=== PATIENT | male | born 1940 | race Caucasian/White ===

== ENCOUNTER → 2017-11-08 15:21 | Outpatient (CLI) | payer MEDICARE, SELFPAY ==
[2017-11-08 16:08] LABS: PSA,Total- Diagnostic 8.15 ng/mL (0.0-4.0)
== END ==
PROVIDERS: Family Provider Internal Medicine; PCP Internal Medicine; Visit Provider Urology
DX: R97.20 Elevated prostate specific antigen [PSA] (principal)
CPT/HCPCS: 36415; 84153

== ENCOUNTER → 2017-11-30 16:02 | Outpatient (CLI) | payer MEDICARE, SELFPAY ==
--- NOTE | 2017-11-30 | IMM_PTH ---
PATIENT: OFE BLAIR LOC: [facility] U#:[id number] AGE/SX: 84/M ROOM: RE11/30/[address]: Dr. Andrew Haney MD : 1940 BED: DIS: SPEC #: [id number] RECD: 12/02/17 12:37 STATUS: VLADIMIR REQ #: [id number] ADINA: 11/30/17 00:[address]: Andrew Haney DEPT: IMMUNOHISTOCHEMISTRY RECD BY: Holly Allred ENTERED: 12/02/17 12:39 SP TYPE: IMMUNO OTHR DR: Dr. Michelle Sumner MD Tissues: C - PROSTATE RIGHT D - PROSTATE LEFT F - PROSTATE LEFT Procedures: 34BE12 (add) P40 (add) 34BE12 (initial) PHYSICIAN & INSTITUTION [place] [address] SPECIMEN INFORMATION: Tissue Source: C ? Right prostate base, D ? Left prostate apex, F ? Left prostate base Clinical Info: Elevated PSA Specimen Number: [id number] C, D & F CPT code: 80015, 34433 x5 METHODOLOGY: Deparaffinized sections of prefer/formalin-fixed tissue or PAP/DQ stained slides are incubated with monoclonal/polyclonal antibodies/oligonucleotide probes. Localization is made via biotin free immunoperoxidase method. Appropriate controls are performed and reacted as expected. Results on target cell population are indicated in the following table: RESULTS: ANTIBODY / CLONE RESULT Block C P40 (BC28) positive 34BE12 (34BE12) positive Block D P40 (BC28) negative 34BE12 (34BE12) negative Block F P40 (BC28) positive 34BE12 (34BE12) positive These tests were developed and their performance characteristics determined by [facility]. They may not have been cleared or approved by the U.S. Food and Drug Administration. The FDA has determined that such clearance or approval is not necessary. INTERPRETATION: C. Right prostate, base, core biopsy: Focal high-grade prostatic intraepithelial neoplasia (HGPIN). D. Left prostate, apex, core biopsy: Adenocarcinoma. F. Left prostate, base, core biopsy: Focal high-grade prostatic intraepithelial neoplasia (HGPIN). SJ:escobar 12/03/17
--- NOTE | 2017-11-30 08:00 | PROSBIL_PTH ---
PATIENT: OFE BLAIR LOC: [facility] U#:[id number] AGE/SX: 84/M ROOM: RE11/30/[address]: Dr. Andrew Haney MD : 1940 BED: DIS: SPEC #: [id number] RECD: 11/30/17 15:00 STATUS: VLADIMIR MEG #: [id number] ADINA: 11/30/17 08:[address]: Andrew Haney DEPT: SURGICAL PATHOLOGY RECD BY: Viridiana Martinez ENTERED: 12/01/17 09:55 SP TYPE: PROST BX TANYA DR: Dr. Michelle Sumner MD Tissues: A - PROSTATE RIGHT B - PROSTATE RIGHT C - PROSTATE RIGHT D - PROSTATE LEFT E - PROSTATE LEFT F - PROSTATE LEFT Procedures: PROSTATE BX HEADER OPERATION: Prostate biopsy PRE-OP DIAGNOSIS: Elevated PSA TISSUE SUBMITTED: A - Right apex, B - Right mid, C - Right base, D - Left apex, E - Left mid, F - Left base MICROSCOPIC DIAGNOSIS A. Right prostate, apex, core biopsy: Prostatic tissue, negative for malignancy. Focal mild chronic inflammation. B. Right prostate, mid, core biopsy: Prostatic tissue, negative for malignancy. Focal mild chronic inflammation. C. Right prostate, base, core biopsy: Focal high-grade prostatic intraepithelial neoplasia (HGPIN). See comment. D. Left prostate, apex, core biopsy: Prostatic adenocarcinoma: [place] grade: 3+3=6 Number of cores involved: 1 out of 2 Proportion of tissue involved: ~10% Perineural invasion: Not identified. Greatest tumor length: 0.2 cm See comment. E. Left prostate, mid, core biopsy: Prostatic tissue, negative for malignancy. Chronic inflammation. F. Left prostate, base, core biopsy: Focal high-grade prostatic intraepithelial neoplasia (HGPIN). Chronic inflammation. See comment. SJ:escobar 12/02/17 COMMENT C, D & F - Immunohistochemistry ([id number]) supports the above diagnosis. Please make reference to previous specimen ([id number]) right prostate, apex, right prostate, base and left prostate, mid with diagnosis of ?focal high-grade prostatic intraepithelial neoplasia? and right prostate, mid, core biopsy with diagnosis of ?focal atypical small acinar proliferation.? This case has been reviewed in consultation with Dr. Dill who concurs with the above diagnosis. MICROSCOPIC DESCRIPTION Slides are reviewed. GROSS DESCRIPTION A - Received is one container designated prostate, right apex. The specimen consists of two elongated fragments of light navarro-white soft tissue each measuring 1.5 cm in length and 0.1 cm in diameter. The specimen is totally submitted in one cassette. B - Received is one container designated prostate, right mid. The specimen consists of two elongated fragments of light navarro-white soft tissue each measuring 1 cm in length and 0.1 cm in diameter. The specimen is totally submitted in one cassette. C - Received is one container designated prostate, right base. The specimen consists of two elongated fragments of light navarro-white soft tissue each measuring 1 cm in length and 0.1 cm in diameter. The specimen is totally submitted in one cassette. D - Received is one container designated prostate, left apex. The specimen consists of two elongated fragments of light navarro-white soft tissue each measuring 1 cm in length and 0.1 cm in diameter. The specimen is totally submitted in one cassette. E - Received is one container designated prostate, left mid. The specimen consists of two elongated fragments of light navarro-white soft tissue each measuring 1 cm in length and 0.1 cm in diameter. The specimen is totally submitted in one cassette. F - Received is one container designated prostate, left base. The specimen consists of two elongated fragments of light navarro-white soft tissue each measuring 1 cm in length and 0.1 cm in diameter. The specimen is totally submitted in one cassette. / AM:escobar 12/01/17 TC:0 [facility]: [id number]
== END ==
PROVIDERS: Family Provider Internal Medicine; PCP Internal Medicine; Visit Provider Urology
DX: R97.20 Elevated prostate specific antigen [PSA] (principal)
CPT/HCPCS: 88305; 88341; 88342; G0416

== ENCOUNTER → 2020-06-06 12:05 | Outpatient (CLI) | payer MEDICARE, SELFPAY ==
--- NOTE | 2020-06-06 | IMM_PTH ---
PATIENT: OFE BLAIR LOC: [facility] U#:[id number] AGE/SX: 84/M ROOM: RE06/06/[address]: Dr. Andrew Haney MD : 1940 BED: DIS: SPEC #: [id number] RECD: 06/07/20 14:06 STATUS: VLADIMIR REQ #: [id number] ADINA: 06/06/20 00:[address]: Andrew Haney DEPT: IMMUNOHISTOCHEMISTRY RECD BY: Holly Allred ENTERED: 06/07/20 14:07 SP TYPE: IMMUNO OTHR DR: Dr. Michelle Sumner MD Tissues: B - PROSTATE RIGHT C - PROSTATE RIGHT D - PROSTATE LEFT Procedures: 34BE12 (add) P40 (add) 34BE12 (initial) PHYSICIAN & INSTITUTION [place] [address] SPECIMEN INFORMATION: Tissue Source: B - Right prostate, mid, C - Right prostate, base, D - Left prostate, apex Clinical Info: R97.20 Specimen Number: [id number] B, C & D CPT code: 23034, 04236 x5 METHODOLOGY: Deparaffinized sections of prefer/formalin-fixed tissue or PAP/DQ stained slides are incubated with monoclonal/polyclonal antibodies/oligonucleotide probes. Localization is made via biotin free immunoperoxidase method. Appropriate controls are performed and reacted as expected. Results on target cell population are indicated in the following table: RESULTS: ANTIBODY / CLONE RESULT Block B P40 (BC28) positive 34BE12 (34BE12) positive Block C P40 (BC28) negative 34BE12 (34BE12) negative Block D P40 (BC28) negative 34BE12 (34BE12) negative These tests were developed and their performance characteristics determined by [facility]. They may not have been cleared or approved by the U.S. Food and Drug Administration. The FDA has determined that such clearance or approval is not necessary. The above immunohistochemical/dualISH markers are ordered and reviewed by the Pathologist. INTERPRETATION: B. Right prostate, mid, core biopsy: Negative for adenocarcinoma. C. Right prostate, base, core biopsy: Adenocarcinoma. D. Left prostate, apex, core biopsy: Adenocarcinoma. SJ:escobar 06/10/2020
--- NOTE | 2020-06-06 08:00 | PROSBIL_PTH ---
PATIENT: OFE BLAIR LOC: [facility] U#:[id number] AGE/SX: 84/M ROOM: RE06/06/[address]: Dr. Andrew Haney MD : 1940 BED: DIS: SPEC #: [id number] RECD: 06/06/20 11:54 STATUS: VLADIMIR MEG #: [id number] ADINA: 06/06/20 08:[address]: Andrew Haney DEPT: SURGICAL PATHOLOGY RECD BY: María Bethea ENTERED: 06/06/20 12:44 SP TYPE: PROST BX TANYA DR: Dr. Michelle Sumner MD Tissues: A - PROSTATE RIGHT B - PROSTATE RIGHT C - PROSTATE RIGHT D - PROSTATE LEFT E - PROSTATE LEFT F - PROSTATE LEFT Procedures: PROSTATE BX HEADER OPERATION: Prostate biopsy PRE-OP DIAGNOSIS: R97.20 TISSUE SUBMITTED: A - Right apex, B - Right mid, C - Right base, D - Left apex, E - Left mid, F - Left base MICROSCOPIC DIAGNOSIS A. Right prostate, apex, core biopsy: Prostatic tissue, negative for malignancy. Focal atrophy and basal cell hyperplasia. B. Right prostate, mid, core biopsy: Prostatic tissue, negative for malignancy. Focal mild chronic inflammation. See comment. C. Right prostate, base, core biopsy: Prostatic adenocarcinoma. [place] grade: 3+3=6 Number of cores involved: 1/2 Proportion of tissue involved: ~20% Perineural invasion: Not identified. Greatest tumor length: 0.3 cm Focal high-grade prostatic intraepithelial neoplasia (HGPIN). See comment. D. Left prostate, apex, core biopsy: Prostatic adenocarcinoma. [place] grade: 3+3=6 Number of cores involved: 1/2 Proportion of tissue involved: ~10% Perineural invasion: Not identified. Greatest tumor length: 0.2 cm Focal high-grade prostatic intraepithelial neoplasia (HGPIN). See comment. E. Left prostate, mid, core biopsy: Prostatic tissue, negative for malignancy. F. Left prostate, base, core biopsy: Prostatic tissue, negative for malignancy. SJ:escobar 06/07/2020 COMMENT B,C & D. Immunohistochemistry ([id number]) supports the above diagnosis. Please make reference to previous specimen ([id number]) left prostate, apex, core biopsy with diagnosis of prostatic adenocarcinoma and right and left prostate, base, core biopsy with diagnosis of focal high-grade prostatic intraepithelial neoplasia. Case has been reviewed in consultation with Dr. Dill who concurs with the above diagnosis. IDC:AM MICROSCOPIC DESCRIPTION Slides are reviewed. GROSS DESCRIPTION A - Received is one container designated prostate, right apex. The specimen consists of two elongated fragments of light navarro-white soft tissue each measuring 1 and 1.5 cm in length and 0.1 cm in diameter. The specimen is totally submitted in one cassette. B - Received is one container designated prostate, right mid. The specimen consists of two elongated fragments of light navarro-white soft tissue each measuring 2 cm in length and 0.1 cm in diameter. The specimen is totally submitted in one cassette. C - Received is one container designated prostate, right base. The specimen consists of two elongated fragments of light navarro-white soft tissue measuring 1 and 1.5 cm in length and 0.1 cm in diameter. The specimen is totally submitted in one cassette. D - Received is one container designated prostate, left apex. The specimen consists of two elongated fragments of light navarro-white soft tissue each measuring 0.9 cm in length and 0.1 cm in diameter. The specimen is totally submitted in one cassette. E - Received is one container designated prostate, left mid. The specimen consists of two elongated fragments of light navarro-white soft tissue each measuring 1 cm in length and 0.1 cm in diameter. The specimen is totally submitted in one cassette. F - Received is one container designated prostate, left base. The specimen consists of two elongated fragments of light navarro-white soft tissue each measuring 1.1 cm in length and 0.1 cm in diameter. The specimen is totally submitted in one cassette. / MICHAEL:escobar 06/06/20 TC:0 CPT: G0146
== END ==
PROVIDERS: PCP Internal Medicine; Referring Provider Urology; Visit Provider Urology
DX: R97.20 Elevated prostate specific antigen [PSA] (principal); C61 Malignant neoplasm of prostate; Z12.5 Encounter for screening for malignant neoplasm of prostate
CPT/HCPCS: 88305; 88341; 88342; G0416

== ENCOUNTER 2021-01-10 11:38 | Day surgery (SDC) | payer MEDICARE, SELFPAY ==
[2021-01-10 12:15] VITALS: BP 158/85; PULSE 79; RESP 18; TEMP 36.4; O2SAT 96; BMI 27.9
[2021-01-10] MEDS: Lactated Ringers 1,000 ML 100 ML IV (12:15)
[2021-01-10] MEDS: Cefazolin 2 GM in 0.9% Normal Saline 100 ML IV (13:37)
--- NOTE | 2021-01-10 13:44 | PCM.DC ---
Discharge Instructions Diet Discharge Diet: No restrictions Activity Discharge Activity: Return to Normal Activity and May Not Drive (while taking narcotic pain medications.) Dressing / Incision Call your doctor if you observe: Fever of 101 or Higher Follow Up Care Please Follow Up With: Andrew Haney MD When: Call [phone] for an appointment Test Results: Test results from this visit will be discussed in further detail at your follow-up appointment, if applicable. Discharge Plan Admission Primary Reason for Your Visit: placement markers Attending Provider: Andrew Haney Primary Care Provider: Michelle Sumner Discharge Orders/Prescriptions Prescriptions: New ciprofloxacin HCl [Cipro] 500 mg tablet 500 mg PO BID Qty: 14 RF: 0 Continued amlodipine 5 mg tablet 5 mg PO DAILY RF: 0 One-A-Day Men's 50 Plus 1 tab PO/SL DAILY RF: 0 Referrals / Follow Up: Andrew Haney MD [STAFF PHYSICIAN] - Michelle Sumner MD [Primary Care Provider] - Disposition Disposition (needs filled in before D/C Order can be placed): Home, Self Care
--- NOTE | 2021-01-10 13:51 | OP.PCM_ITS ---
Report of Operation Date of Procedure: 01/10/21 Pre-Operative Diagnosis: prostate cancer Post-Operative Diagnosis: same Surgery/Procedure Performed:: placement of gold markers and placement of spacer gel matrix Description of Surgical Findings:: The penis and testicles were prepped and draped in usual sterile fashion, ultrasound probe was placed into the rectum and biplanar ultrasound was performed on the prostate. Identified the base mid and apex of the prostate identified the transition zone prostate. Then using a needle the first montessori teacher was placed into the right base of the prostate, the second montessori teacher was placed in the left base of the prostate, and the third core marker was placed in the right apex of the prostate after all 3 markers were placed the placement of the markers were confirmed by ultrasonography. The genitals and perineum were prepped and draped in usual sterile fashion. I then introduced a biplanar ultrasound probe into the rectum and performed ultrasonography and identified the Denonvilliers' fascia the prostate mid base and apex and seminal vesicles. The spacer gel mix was then prepared on the back table per manufactures instruction. Under ultrasound guidance in the midline perineum a bevel needle down we advanced through the perineum below the prostate into the space of Denonvilliers' fascia. This space which could be identified by ultrasound with a bright white layer between the prostate and the rectum. I then injected a puff of normal saline to identify the space further. After I confirmed that the needle was in the correct space in the mid prostate and the space of Denonvilliers' fascia between the rectum and the prostate. Then over the course of 15 seconds the gel matrix was injected slowly there was nice separation between the prostate and the rectum at the gel matrix was injected. The position of the gel matrix was confirmed by ultrasound. Then the injection needle was removed intact. Patient's perineum was cleaned patient was taken out of stirrups and then taken back to the PACU in good condition. Surgeon: aman Type of Anesthesia: General Admit VTE Documentation VTE Present on Admission: No VTE Mechan Device Prophylaxis: SCD's VTE Pharm Prophylaxis ordered?: No
[2021-01-10 14:01] VITALS: BP 158/85; BP 84/60; PULSE 66; RESP 16; TEMP 36.6; O2SAT 94
[2021-01-10 14:05] VITALS: BP 158/85; BP 97/74; PULSE 66; RESP 16; O2SAT 92
[2021-01-10 14:11] VITALS: BP 101/67; BP 158/85; PULSE 72; RESP 16; O2SAT 94
[2021-01-10 14:18] VITALS: BP 114/80; BP 158/85; PULSE 73; RESP 16; TEMP 36.3; O2SAT 94
[2021-01-10 14:58] VITALS: BP 138/81; BP 158/85; PULSE 74; RESP 16; TEMP 36.3; O2SAT 97
== END 2021-01-10 15:01 | disposition home or self-care (01) ==
LOC: SDC 11:40 → AC 11:42
PROVIDERS: PCP Internal Medicine; Referring Provider Urology; Visit Provider Urology
PROC: (CPT 55874; principal; 2021-01-10 13:45)
DX: C61 Malignant neoplasm of prostate (principal); I10 Essential (primary) hypertension
CPT/HCPCS: 00902; 55876; J7120; J2405; J3490

== ENCOUNTER → 2021-01-23 11:33 | Outpatient (CLI) | payer MEDICARE, SELFPAY ==
[2021-01-23 12:28] LABS: Absolute Lymphocyte Count 1.64 X10^3/uL (0.83-4.51); Absolute Neutrophil Count 4.7 X10^3/uL (2.0-7.7); Basophil# 0.05 X10^3/uL; Basophil% 0.7 % (0-1); Eosinophil# 0.12 X10^3/uL; Eosinophils% 1.7 % (0-5); Hematocrit 48.6 % (40-54); Hemoglobin 15.8 g/dL (13.0-16.5); Lymphocyte # 1.64 X10^3/ul (0.83-4.51); Lymphocyte % 22.7 % (19-41); Mean Corp Hgb Conc 32.5 g/dL (32-36); Mean Corpuscular Hgb 29.6 pg (27.0-32.0); Mean Corpuscular Volume 91.2 fL (80-94); Mean Platelet Vol. 10.9 fl (6.2-12.0); Monocyte% 9.7 % (0-10); NRBC Flagged by Analyzer 0 % (0-5); Neutrophil # 4.68 X10^3/uL (2.7-7.7); Neutrophil % 64.6 % (47-70); Platelet Count 239 K/mm3 (150-450); RBC Distribution Width CV 12.8 % (11.6-14.6); RBC Distribution Width SD 43.1 fl (35.1-43.9); Red Blood Count 5.33 M/mm3 (4.6-6.2); White Blood Count 7.2 K/mm3 (4.4-11.0)
[2021-01-23 12:40] LABS: Creatinine, Serum 1.54 mg/dL (0.70-1.30); EST Glomerular Filtration Rate 47 mL/min (>60); Est Glom Filt Rate - Afr Amer 56 mL/min (>60)
== END ==
PROVIDERS: PCP Internal Medicine; Referring Provider Radiology Radiation Oncology; Visit Provider Radiology Radiation Oncology
DX: Z01.818 Encounter for other preprocedural examination (principal); C61 Malignant neoplasm of prostate
CPT/HCPCS: 36415; 82565; 84153; 85025

== ENCOUNTER → 2021-01-24 12:38 | Outpatient (CLI) | payer MEDICARE, SELFPAY ==
--- NOTE | 2021-01-24 12:46 | CT_ITS ---
STUDY: CT PELVIS WITH CONTRAST REASON FOR EXAM: Male, 80 years old. Prostate cancer RADIATION DOSAGE (If Supplied By Facility): CTDIvol = ( 16.32 ) mGy, DLP = ( 1359.12 ) mGycm TECHNIQUE: Transaxial imaging of the pelvis was performed with oral contrast. 100 ml of ISO 300 contrast was administered intravenously. Individualized dose optimization techniques were used for this CT. COMPARISON: None. FINDINGS: Normal urinary bladder. Normal visualized small intestine. Normal visualized colon. There is no pelvic fluid. There is no pelvic lymphadenopathy or mass lesion. There is enlargement of the prostate gland. There are prostatic seed implants. Normal visualized pelvic arteries. Linear hyperdense fluid is seen in the penile shaft suggesting urination in progress. Trace free fluid in the pelvis. The source is not identified. There is a left inguinal hernia containing fat. Normal osseous structures. CT/CT Pelvis W/CONT Therapy IMPRESSION: There are prostatic seed implants. Trace free fluid in the pelvis. The source is not identified. Electronically Signed: Brandin Harris MD at 16:45 EDT , Service support ,
== END ==
PROVIDERS: PCP Internal Medicine; Referring Provider Radiology Radiation Oncology; Visit Provider Radiology Radiation Oncology
DX: C61 Malignant neoplasm of prostate (principal)
CPT/HCPCS: 51600; 72193; Q9967

== ENCOUNTER → 2021-02-24 09:24 | Outpatient (CLI) | payer MEDICARE, SELFPAY ==
[2021-02-24 12:13] LABS: Absolute Lymphocyte Count 1.31 X10^3/uL (0.83-4.51); Absolute Neutrophil Count 4.7 X10^3/uL (2.0-7.7); Basophil# 0.04 X10^3/uL; Basophil% 0.6 % (0-1); Eosinophil# 0.18 X10^3/uL; Eosinophils% 2.6 % (0-5); Hematocrit 48.9 % (40-54); Hemoglobin 15.5 g/dL (13.0-16.5); Lymphocyte # 1.31 X10^3/ul (0.83-4.51); Mean Corp Hgb Conc 31.7 g/dL (32-36); Mean Corpuscular Hgb 29.3 pg (27.0-32.0); Mean Corpuscular Volume 92.4 fL (80-94); Mean Platelet Vol. 10.8 fl (6.2-12.0); Monocyte# 0.67 X10^3/uL; Monocyte% 9.7 % (0-10); NRBC Flagged by Analyzer 0 % (0-5); Neutrophil # 4.65 X10^3/uL (2.7-7.7); Neutrophil % 67.5 % (47-70); Platelet Count 221 K/mm3 (150-450); RBC Distribution Width CV 12.9 % (11.6-14.6); RBC Distribution Width SD 43.7 fl (35.1-43.9); Red Blood Count 5.29 M/mm3 (4.6-6.2); White Blood Count 6.9 K/mm3 (4.4-11.0)
== END ==
PROVIDERS: PCP Internal Medicine; Visit Provider Radiology Radiation Oncology
DX: C61 Malignant neoplasm of prostate (principal)
CPT/HCPCS: 36415; 85025

== ENCOUNTER 2021-03-17 22:28 | Emergency (ER) | payer MEDICARE, SELFPAY ==
[2021-03-17 22:29] VITALS: BP 171/99; PULSE 80; RESP 16; TEMP 36; O2SAT 96; BMI 29.0
--- NOTE | 2021-03-17 23:00 | EDS_ITS ---
HPI History of Present Illness Chief Complaint: Allergic Reaction Informant: patient and spouse/S.O. Onset/Context/Timing Onset: Today Context: Gradual Onset Timing: Continuous Current Severity: Mild Maximum Severity: Mild Narrative Narrative: 80-year-old male history of prostate cancer who underwent radiation therapy. And was placed on Flomax due to urinary retention and poor urinary flow. Said today he developed hives and itching on his upper extremities. Never had a reaction like this before. The only new medication he is on is Flomax. He is also on amlodipine and a vitamin. No new soaps, colognes or detergents. No new foods. He denies any lip or tongue swelling. No wheezing or trouble breathing. Prior similar symptoms: No Recent Illness/Hospitalization: No PFSH PFSH Medical History Cancer Hypertension Non-smoker Wears glasses Home Medications One-A-Day Men's 50 Plus 1 tab PO/SL DAILY 01/03/21 [History Last Taken Unknown] amlodipine 5 mg PO DAILY 01/03/21 [History Last Taken 01/10/21 06:00] ciprofloxacin HCl [Cipro] 500 mg PO BID #14 tab 01/10/21 [Rx Last Taken Unknown] prednisone 40 mg PO DAILY 3 Days #6 tab 03/17/21 [Rx Last Taken Unknown] Allergy/AdvReac Type Severity Reaction Status Date / Time tamsulosin [From Flomax] AdvReac Hives Verified 03/17/21 22:30 Surgical History History of colonoscopy History of tonsillectomy Social History Smoking Status: Never smoker ROS ROS ED ROS Narrative Denies recent illness. Review of Systems ROS Unobtainable: Denies due to encephalopathy Constitutional Constitutional ED: Denies chills or fever(s) Eyes Eyes: Denies change in vision ENT ENT ED: Denies ear pain Cardiovascular Cardiovascular: Denies chest pain or palpitations Respiratory/Chest Respiratory/Chest: Denies cough or dyspnea Gastrointestinal Gastrointestinal: Denies abdominal pain, diarrhea, nausea or vomiting Genitourinary Genitourinary ED: Reports urinary frequency; Denies dysuria or hematuria Musculoskeletal Musculoskeletal: Denies myalgias Integumentary Reports rash Neurologic Neurologic: Denies headache(s) Psychiatric Psychiatric: Denies depression Endocrine Endocrinology: Denies polyuria Allergic/Immunologic Allergic/Immunologic ED: Denies urticaria EXAM Physical Exam Narrative Exam Narrative: 72-year-old male no acute distress vital signs stable afebrile. HEENT exam unremarkable. No swelling of his lips or tongue. No trouble breathing or swallowing. Neck nontender. Lungs clear to auscultation bilaterally. Heart regular rhythm no murmur. Abdomen soft nontender. Extremities moves all 4. Calves nontender without edema. He has hives on both forearms. Back nontender. Back chest and abdomen have no hives. Skin otherwise is unremarkable. Neurologically is awake and alert with no focal motor deficits. Const Vital Signs: 03/17/21 22:29 Temperature 96.8 F L Temperature Source Temporal Pulse Rate 80 Respiratory Rate 16 Blood Pressure 171/99 H Blood Pressure Mean 123 Pulse Ox 96 Oxygen Delivery Method Room Air Positive well nourished and well developed; Negative for obese, cachectic, contractures or unkempt General Appearance ED: well developed and NAD; Negative for unkempt, cachectic, contractures, cyanotic or diaphoretic Nutritional Appearance: Negative for cachectic or obese HEENT Reports moist mucous membranes Negative for trauma or tenderness Eyes PERRL and EOMs intact bilaterally Neck no lymphadenopathy, supple and no JVD General: Negative for tenderness Chest Wall inspection of chest normal and palpation of chest normal Resp normal respiratory effort and clear to auscultation bilaterally Effort and Inspection: Negative for pain with movement Auscultation: Negative for rales, rhonchi or wheezes Cardio regular rate, regular rhythm, S1 normal heart sound, S2 normal heart sound and no murmurs GI normal to inspection, nondistended, normoactive bowel sounds, non-tender, non- distended and no masses Inspection: Negative for abdominal distention Auscultation: normoactive bowel sounds Palpation: soft; Negative for tender, guarding or rebound tenderness present Back/Spine no CVA tenderness General Back: Negative for CVA tenderness Cervical Spine: Negative for cervical spine tenderness Thoracic Spine / Upper Back: Negative for thoracic spinal tenderness Extremity normal to inspection Extremity Narrative: Hives on both forearms. General Extremety ED: Negative for edema or tenderness General Extremity: Negative for edema Neuro oriented x3 Sensorium / Orientation: alert; Negative for orientation impaired, lethargic or stuporous Motor Exam: strength 5/5 throughout Psych mental status grossly normal Appearance: Negative for unkempt Mood & Affect: Negative for depressed or tearful Skin No no rashes or lesions noted and no wounds Skin Narrative: Hives bilateral forearms. Rashes: rashes noted MDM MDM MDM Narrative Medical decision making narrative: Patient has hives on both forearms consistent allergic reaction. No other rashes anywhere else. No swelling of his lips or tongue. I explained his is possible this is secondary to the medication he is on but is not a common reaction to that medication. He will be placed on prednisone given 60 mg here and 40 once a day for 3 more days if the rash does not resolve. He also needs a follow-up with his urologist Dr. Yimi Haeny for further evaluation for his urinary frequency and retention. Discharge Plan Triage Chief Complaint: Allergic Reaction ED Provider: Delano Mcbride Dx/Rx/DC Orders Clinical Impression: Hives, Prostate cancer Instructions: ED Hives (Adult) Prescriptions: New prednisone 20 mg tablet 40 mg PO DAILY 3 Days Qty: 6 RF: 0 No Action amlodipine 5 mg tablet 5 mg PO DAILY RF: 0 One-A-Day Men's 50 Plus 1 tab PO/SL DAILY RF: 0 ciprofloxacin HCl [Cipro] 500 mg tablet 500 mg PO BID Qty: 14 RF: 0 Primary Care Provider: Michelle Sumner Referrals: Andrew Haney MD [STAFF PHYSICIAN] - 3-5 Days if not improving Michelle Sumner MD [Primary Care Provider] - 3-5 Days if not improving Activity Restrictions/Additional Instructions: With causing hives. Prednisone 40 mg a day for the next [address] If the rash completely resolves he can stop the prednisone. I would continue to take the medication to help you urinate. If the rash continues you may have to stop it. Make sure you follow-up with Dr. Haney for the urinary frequency and retention. Disposition Disposition: Home, Self Care
[2021-03-17] MEDS: predniSONE 20 MG Tablet 60 MG PO (23:04)
== END 2021-03-17 23:14 | disposition home or self-care (01) ==
PROVIDERS: Emergency Provider Emergency Medicine; PCP Internal Medicine
DX: C61 Malignant neoplasm of prostate (principal); L50.0 Allergic urticaria; I10 Essential (primary) hypertension; Z79.52 Long term (current) use of systemic steroids; Z92.3 Personal history of irradiation
CPT/HCPCS: 99283; J7030; A4216

== ENCOUNTER → 2021-03-25 09:27 | Outpatient (CLI) | payer MEDICARE, SELFPAY ==
--- NOTE | 2021-03-25 09:51 | BD_ITS ---
STUDY: DUAL ENERGY X-RAY ABSORPTIOMETRY / DXA REASON FOR EXAM: Male, 80 years old. Z78.890. Patient is postmenopausal. TECHNIQUE: Bone Mineral Density (BMD) measurements of lumbar spine and bilateral hips were obtained. COMPARISON: None. FINDINGS: Lumbar Spine (L1-L4): g/cm2 (0.956) / T-score (-1.2) / Z-score (0.0) Findings are suggestive of osteopenia with a low fracture risk. Left Femur Total: g/cm2 (0.960) / T-score (-0.5) / Z-score (0.5) Left Femoral Neck: g/cm2 (0.735) / T-score (-1.4) / Z-score (0.0) Right Femur Total: g/cm2 (0.956) / T-score (-0.5) / Z-score (0.5) Right Femoral Neck: g/cm2 (0.724) / T-score (-1.5) / Z-score (0.0) BD/Dexa Bone Density Study IMPRESSION: The patient is considered osteopenic as outlined below according to World [place] Organization (WHO) criteria with a low fracture risk. Reference Information: The T-score is the number of standard deviations above or below the standard which is normal for young adults at their peak bone mineral density. The World Health Organization (WHO) interprets the T-scores as follows: Above -1 Normal bone density Between -1 and -2.5 Osteopenia Equal to / or below -2.5 Osteoporosis As a practical clinical guideline, osteopenia may be graded as follows: Mild -1 through -1.5 Moderate -1.6 through -2.0 Severe -2.1 through -2.4 The Z-score is the number of standard deviations above or below age-matched controls. A Z-score of less than -1.5 would be considered abnormal. References: 1. NIH Osteoporosis and Related Bone Diseases www osteo.org 2. International Society for Clinical Densitometry www iscd.org 3. National Osteoporosis Foundation www nof.org Electronically Signed: Marvin Talley MD at 15:28 EST , Service support ,
== END ==
PROVIDERS: PCP Internal Medicine; Referring Provider Urology; Visit Provider Urology
DX: C61 Malignant neoplasm of prostate (principal); Z79.890 Hormone replacement therapy
CPT/HCPCS: 77080

== ENCOUNTER 2021-08-06 06:51 | Outpatient (CLI) | payer MEDICARE, SELFPAY ==
[2021-08-06 07:49] LABS: PSA,Total- Diagnostic 0.01 ng/mL (0.0-4.0)
== END 2021-08-06 23:59 | disposition home or self-care (01) ==
LOC: MTLAB 06:52 → LAB 06:53
PROVIDERS: PCP Internal Medicine; Referring Provider Urology; Visit Provider Urology
DX: C61 Malignant neoplasm of prostate (principal)
CPT/HCPCS: 36415; 84153

== ENCOUNTER → 2022-02-26 | Outpatient (CLI) | payer MEDICARE, SELFPAY ==
[2022-02-26 07:48] LABS: PSA,Total- Diagnostic 0.13 ng/mL (0.0-4.0)
== END | disposition home or self-care (01) ==
LOC: LAB 06:03
PROVIDERS: PCP Internal Medicine; Visit Provider Urology
DX: C61 Malignant neoplasm of prostate (principal)
CPT/HCPCS: 36415; 84153

== ENCOUNTER 2022-04-29 05:05 | Emergency (ER) | payer MEDICARE, SELFPAY ==
[2022-04-29 05:06] VITALS: BP 184/103; PULSE 79; RESP 18; TEMP 36.4; O2SAT 95; BMI 29.0
--- NOTE | 2022-04-29 05:17 | EX.ED.DYSGE1 ---
HPI History of Present Illness Chief Complaint: Nosebleed Narrative Narrative: Patient is a 81-year-old male with past medical history of hypertension. He states that over the past few weeks he will occasionally get a faint nosebleed out of the left nostril for no apparent reason. He states that the bleeding can come on spontaneously and then resolve a few minutes later and then be completely gone for weeks before returning. He states last night he was sleeping when he awoke to the sensation of something stuck in the back of his throat and when he awoke he had bleeding from his nostrils mainly out of the right. He states there has been no trauma and he denies any blood thinner use or history of bleeding disorder. He states he tried to get the bleeding stopped at home but cannot do so and secondary to this comes in for evaluation. [facility] Medical History Cancer Hypertension Non-smoker Wears glasses Home Medications One-A-Day Men's 50 Plus 1 tab PO/SL DAILY SUPPLEMENT 01/03/21 [History Last Taken Unknown] amlodipine 5 mg tablet 5 mg PO DAILY 04/29/22 [History Last Taken Unknown] Allergy/AdvReac Type Severity Reaction Status Date / Time tamsulosin [From Flomax] AdvReac Hives Verified 03/17/21 22:30 Surgical History History of colonoscopy History of tonsillectomy Social History Smoking Status: Never smoker ROS ROS ED Constitutional Constitutional ED: Denies chills or fever(s) Eyes Eyes: Denies change in vision ENT ENT ED: Reports other Details: Positive nosebleed ; Denies sore throat Cardiovascular Cardiovascular: Denies chest pain or palpitations Respiratory/Chest Respiratory/Chest: Denies cough or dyspnea Gastrointestinal Gastrointestinal: Denies abdominal pain, diarrhea, nausea or vomiting Genitourinary Genitourinary ED: Denies dysuria Musculoskeletal Musculoskeletal: Denies myalgias Integumentary Denies rash Neurologic Neurologic: Denies headache(s) Hematologic/Lymphatic Hematologic/Lymphatic: Denies easy bleeding or easy bruising EXAM Physical Exam Const Vital Signs: 04/29/22 05:06 Temperature 97.5 F L Temperature Source Temporal Pulse Rate 79 Respiratory Rate 18 Blood Pressure 184/103 H Blood Pressure Mean 130 Pulse Ox 95 Oxygen Delivery Method Room Air Positive well nourished and well developed General Appearance ED: well developed HEENT HEENT Narrative: Patient has dried blood present in both the right and left nostril greatest on the right. There is also dried blood noted in the posterior pharynx without active bleeding or clot formation present. No airway edema or compromise. Eyes PERRL and EOMs intact bilaterally General Eye ED: Negative for pale conjunctiva Neck supple Resp normal respiratory effort and clear to auscultation bilaterally Cardio regular rate and regular rhythm Extremity normal to inspection Neuro oriented x3, CN's II-XII intact bilaterally and no sensory deficits noted Sensorium / Orientation: alert Psych mental status grossly normal Skin no rashes or lesions noted MDM MDM MDM Narrative Medical decision making narrative: Patient presented to the ER hypertensive but has a past medical history of this and has not taken his morning medication yet so this is to be expected and otherwise vitals are stable. He has spontaneous bleeding out of the right nostril which has been relatively well controlled with his packing at home and denies any history of bleeding disorder or blood thinner use. The patient's home packing was removed and lidocaine with epinephrine and Afrin soaked gauze balls were placed into each nostril. They were kept in place for approximate 25 minutes and then removed. After removal there is no obvious area of active bleeding or site that would benefit with cautery. The patient was watched in the ER for another 15 to 20 minutes and there was no bleeding of the nostril or in the posterior pharynx. Therefore this time I feel patient had a spontaneous nosebleed secondary to a combination of his hypertension as well as the fact that his septum has become dry. He was advised to place Vaseline and use [employer] nasal spray to help prevent any further breakthrough bleeding but at this time as the bleeding has been well controlled and there is no area needing cauterization or nasal packing he is safe for discharge Discharge Plan Triage Chief Complaint: Nosebleed ED Provider: Thiago Rivas Dx/Rx/DC Orders Clinical Impression: Acute anterior epistaxis, Hypertension Instructions: Nosebleed Prescriptions: No Action One-A-Day Men's 50 Plus 1 tab PO/SL DAILY amlodipine 5 mg tablet 5 mg PO DAILY Primary Care Provider: Michelle Sumner Referrals: Michelle Sumner MD [Primary Care Provider] - Activity Restrictions/Additional Instructions: If bleeding starts once again you may put Kleenex in the nostril for packing and then use a nasal clip to hold pressure for 20 minutes. If bleeding still persist after this then return to the ER for repeat evaluation. In order to prevent recurrent bleeding please use [employer] nasal spray and Vaseline to the nostrils/nasal septum at least once a day. If you have any further concerns please return the hospital for repeat evaluation Disposition Disposition: Home, Self Care
[2022-04-29] MEDS: Lidocaine 2% /Epi 1:100 (20ml) 20 ML VIAL INFILT (05:36)
[2022-04-29] MEDS: Oxymetazoline 0.05% 1 SPRAY SPRAY.BTL 2 SPRAY NASAL (05:36)
[2022-04-29 06:29] VITALS: BP 132/98; PULSE 99; RESP 15; O2SAT 100
== END 2022-04-29 06:30 | disposition home or self-care (01) ==
PROVIDERS: Emergency Provider Emergency Medicine; PCP Internal Medicine; Visit Provider Emergency Medicine
DX: R04.0 Epistaxis (principal); I10 Essential (primary) hypertension
CPT/HCPCS: 30901; 99282

== ENCOUNTER → 2022-08-20 | Outpatient (CLI) | payer MEDICARE, SELFPAY ==
[2022-08-20 08:18] LABS: PSA,Total- Diagnostic 0.13 ng/mL (0.0-4.0)
== END | disposition home or self-care (01) ==
LOC: LAB 07:01
PROVIDERS: PCP Internal Medicine; Referring Provider Registered Nurse; Visit Provider Registered Nurse
DX: C61 Malignant neoplasm of prostate (principal)
CPT/HCPCS: 36415; 84153